=== PATIENT | male | born 1985 | race Caucasian/White ===

== ENCOUNTER 2018-03-26 19:15 | Emergency (ER) | payer OTHER ==
[~2018-03-26] VITALS: Ht 182.9 cm; Wt 152.0 kg
[2018-03-26] MEDS ORDERED: LISINOPRIL-HCT1 EACH (19:26)
[2018-03-26] MEDS ORDERED: SINGULAIR 10 MG10 M1 (19:27)
[2018-03-26] MEDS ORDERED: QVAR REDIHALE10.6 G1 (19:28)
[2018-03-26 20:20] VITALS: BP 145/70
== END 2018-03-26 20:20 | disposition home or self-care (01) ==
LOC: M.ERS 19:15
DX: S93.601A Unspecified sprain of right foot, initial encounter (principal); I10 Essential (primary) hypertension; J45.909 Unspecified asthma, uncomplicated; W50.2XXA Accidental twist by another person, initial encounter; Y93.89 Activity, other specified; Y92.89 Other specified places as the place of occurrence of the external cause; Y99.8 Other external cause status